=== PATIENT | male | born 1940 | race Caucasian/White ===

== ENCOUNTER 2016-10-31 08:29 | Emergency (ER) | payer MEDICARE ==
[2016-10-31 09:28] LABS: HEMOGLOBIN 15.1 gm/dl (14.0-17.5); RED BLOOD COUNT 5.08 M/UL (4.20-5.50); WHITE BLOOD COUNT 5.3 K/UL (4.5-11.0)
== END 2016-10-31 18:20 | disposition home or self-care (01) ==
LOC: ER1 08:29
PROVIDERS: Family Medicine
DX: R42 Dizziness and giddiness (principal); N28.9 Disorder of kidney and ureter, unspecified; I10 Essential (primary) hypertension; Z79.899 Other long term (current) drug therapy; Z90.49 Acquired absence of other specified parts of digestive tract; Z87.448 Personal history of other diseases of urinary system
CPT/HCPCS: 36415; 70450; 71010; 80053; 82550; 82553; 82962; 83874; 84484; 85025; 93005; 96360; 96361; 99284

== ENCOUNTER 2020-06-16 08:32 | Observation (INO) | payer MEDICARE ==
[~2020-06-16] VITALS: Ht 175.3 cm; Wt 108.9 kg
[~2020-06-16 08:32] MED LIST: KEFLEX500 MG PO; NORCO 5-325 TA1 EACH PO
[2020-06-16 09:26] LABS: HEMOGLOBIN 13.2 gm/dl (14.0-17.5); RED BLOOD COUNT 4.55 M/UL (4.20-5.50); WHITE BLOOD COUNT 4.1 K/UL (4.5-11.0)
[2020-06-16 09:46] LABS: BUN/CREATININE RATIO 10 (0-10)
[2020-06-16] MEDS ORDERED: AMLODIPINE BESY10 MG PO (14:24)
[2020-06-16] MEDS ORDERED: LIPITOR40 MG PO (15:05)
[2020-06-16] MEDS ORDERED: PROSCAR 5 MG TAB5 MG PO (15:05)
[2020-06-16] MEDS ORDERED: NORVASC5 MG PO (15:08)
[2020-06-17 06:27] LABS: HEMOGLOBIN 11.9 gm/dl (14.0-17.5); RED BLOOD COUNT 4.15 M/UL (4.20-5.50); WHITE BLOOD COUNT 4.1 K/UL (4.5-11.0)
--- NOTE | 2020-06-18 15:33 | NUR ---
PATIENT WAITING ON MRI OF THE BRAIN WITHOUT MD ASK ME TO CALL MRI . MRI NOT IN THE TEST WILL NOT GET DONE TODAY. PER ORGAN INSTALLER (MIKE)
[2020-06-18] MEDS ORDERED: ASPIRIN EC81 MG PO (16:07)
[2020-06-18] MEDS ORDERED: NORVASC5 MG PO (16:07)
== END 2020-06-18 17:49 | disposition home or self-care (01) ==
LOC: ER1 08:32 → CDU 12:30 → MED SURG 4 20:13
PROVIDERS: Family Medicine; Physician Assistant Medical; ADMIT Internal Medicine
DX: R20.2 Paresthesia of skin (principal); R20.0 Anesthesia of skin; R53.1 Weakness; U07.1 COVID-19; E78.5 Hyperlipidemia, unspecified; I12.9 Hypertensive chronic kidney disease with stage 1 through stage 4 chronic kidney disease, or unspecified chronic kidney disease; N18.30 Chronic kidney disease, stage 3 unspecified; Z90.5 Acquired absence of kidney; Z79.82 Long term (current) use of aspirin; Z79.899 Other long term (current) drug therapy
CPT/HCPCS: 36415; 70450; 71045; 80048; 80053; 82550; 82553; 83735; 83874; 84484; 85025; 85027; 85610; 85730; 90471; 93005; 93880; 99285; G0378; U0002

== ENCOUNTER → 2020-07-26 | Outpatient (CLI) | payer MEDICARE ==
[~2020-07-26] MED LIST changes: +AMLODIPINE BESY10 MG PO; +ASPIRIN EC81 MG PO; +LIPITOR40 MG PO; +NORVASC5 MG PO; +PROSCAR 5 MG TAB5 MG PO
== END ==
LOC: LAB 09:08
PROVIDERS: Internal Medicine Nephrology
DX: I10 Essential (primary) hypertension (principal)
CPT/HCPCS: 36415; 80053; 81001

== ENCOUNTER → 2020-09-21 | Outpatient (CLI) | payer MEDICARE ==
[2020-09-21 09:25] LABS: HEMOGLOBIN 11.2 gm/dl (14.0-17.5); RED BLOOD COUNT 4.09 M/UL (4.20-5.50); WHITE BLOOD COUNT 7.3 K/UL (4.5-11.0)
== END ==
LOC: LAB 08:43
PROVIDERS: Internal Medicine Nephrology
DX: N18.9 Chronic kidney disease, unspecified (principal)
CPT/HCPCS: 36415; 80053; 81001; 82043; 82570; 83540; 83550; 83970; 84100; 84156; 85027

== ENCOUNTER → 2020-09-27 | Outpatient (CLI) | payer MEDICARE | LOC: KOH-I 09-20 11:30 | DX: N28.1 Cyst of kidney, acquired (principal); N28.9 Disorder of kidney and ureter, unspecified; Z90.5 Acquired absence of kidney | CPT/HCPCS: 76775 ==

== ENCOUNTER → 2020-10-14 | Outpatient (CLI) | payer MEDICARE | LOC: KOH-I 11:12 | DX: M15.9 Polyosteoarthritis, unspecified (principal); I63.9 Cerebral infarction, unspecified; R20.0 Anesthesia of skin | CPT/HCPCS: 72170; 73030 ==

== ENCOUNTER → 2020-11-04 | Outpatient (CLI) | payer MEDICARE | LOC: KOH-I 11-01 13:00 | DX: N28.1 Cyst of kidney, acquired (principal) | CPT/HCPCS: 76775 ==

== ENCOUNTER → 2020-11-23 | Outpatient (CLI) | payer MEDICARE ==
[2020-11-24 11:15] LABS: CREATININE, URINE 83.5 mg/dL (Not Estab.)
== END ==
LOC: LAB 13:34
PROVIDERS: Internal Medicine Nephrology
DX: N18.9 Chronic kidney disease, unspecified (principal)
CPT/HCPCS: 36415; 80053; 81001; 82043; 82570; 84156; 84550

== ENCOUNTER → 2021-02-10 | Outpatient (CLI) | payer MEDICARE ==
[2021-02-11 10:14] LABS: CREATININE, URINE 74.9 mg/dL (Not Estab.)
== END ==
LOC: LAB 08:38
PROVIDERS: Internal Medicine Nephrology
DX: I10 Essential (primary) hypertension (principal)
CPT/HCPCS: 36415; 80053; 81001; 82043; 82570; 84156

== ENCOUNTER → 2021-04-22 | Outpatient (CLI) | payer MEDICARE ==
[2021-04-22 14:17] LABS: HEMOGLOBIN 13.2 gm/dl (14.0-17.5); RED BLOOD COUNT 4.79 M/UL (4.20-5.50)
[2021-04-23 10:13] LABS: CREATININE, URINE 67.9 mg/dL (Not Estab.)
== END ==
LOC: LAB 13:16
PROVIDERS: Internal Medicine Nephrology
DX: N18.9 Chronic kidney disease, unspecified (principal)
CPT/HCPCS: 36415; 80053; 81001; 82043; 82570; 82728; 83540; 83550; 83970; 84100; 84156; 85027

== ENCOUNTER → 2021-07-14 | Outpatient (CLI) | payer MEDICARE ==
[2021-07-15 08:14] LABS: A/G RATIO 1.3 (1.2-2.2); BILIRUBIN, TOTAL 0.3 mg/dL (0.0-1.2); CALCIUM, SERUM 8.3 mg/dL (8.6-10.2); CREATININE, SERUM 2.74 mg/dL (0.76-1.27); POTASSIUM, SERUM 4.9 mmol/L (3.5-5.2); PROTEIN, TOTAL, SERUM 6.8 g/dL (6.0-8.5)
[2021-07-15 11:15] LABS: CREATININE, URINE 69.9 mg/dL (Not Estab.)
== END ==
LOC: LAB 14:19
PROVIDERS: Internal Medicine Nephrology
DX: N18.9 Chronic kidney disease, unspecified (principal)
CPT/HCPCS: 36415; 80053; 81001; 82043; 82570; 84156

== ENCOUNTER → 2021-09-16 | Outpatient (CLI) | payer MEDICARE ==
[2021-09-17 10:14] LABS: CREATININE, URINE 84.2 mg/dL (Not Estab.)
== END ==
LOC: LAB 12:22
PROVIDERS: Internal Medicine Nephrology
DX: N18.9 Chronic kidney disease, unspecified (principal)
CPT/HCPCS: 36415; 80053; 81001; 82043; 82570; 84156

== ENCOUNTER → 2021-10-28 | Outpatient (CLI) | payer MEDICARE ==
[2021-10-29 09:16] LABS: CREATININE, URINE 96.8 mg/dL (Not Estab.)
== END ==
LOC: LAB 11:04
PROVIDERS: Internal Medicine Nephrology
DX: N18.9 Chronic kidney disease, unspecified (principal)
CPT/HCPCS: 36415; 80053; 81001; 82043; 82570; 84156

== ENCOUNTER → 2021-12-02 | Outpatient (CLI) | payer MEDICARE ==
[2021-12-04 06:43] LABS: CREATININE, URINE 116.7 mg/dL (Not Estab.)
== END ==
LOC: LAB 16:24
PROVIDERS: Internal Medicine Nephrology
DX: N18.9 Chronic kidney disease, unspecified (principal)
CPT/HCPCS: 36415; 80053; 81001; 82043; 82570; 84156

== ENCOUNTER → 2022-01-17 | Outpatient (CLI) | payer MEDICARE ==
[2022-01-18 11:14] LABS: CREATININE, URINE 79.1 mg/dL (Not Estab.)
== END ==
LOC: LAB 15:15
PROVIDERS: Internal Medicine Nephrology
DX: N18.9 Chronic kidney disease, unspecified (principal)
CPT/HCPCS: 36415; 80053; 81001; 82043; 82570; 84156